=== PATIENT | male | born 1955 | race Caucasian/White ===

== ENCOUNTER 2016-12-05 09:20 | Day surgery (SDC) | payer OTHER, MEDICARE ==
--- NOTE | ~2016-12-05 | EGD ---
EGD REPORT [facility] [address] [address] NAME: EDSON SEXTON : 55 STATUS : REG [facility]#: [id number] AGE: 61 ADM/REG DATE : 12/05/16 MR#: [id number] REPORT SERV DATE: 12/05/16 DICTATED BY: EBEN CARTAGENA DATE: 12/05/16 REPORT STATUS : Draft [facility]ANS[facility]IBED BY: [facility] DATE: 12/05/16 [facility] Patient Name: Edson Sexton Date of : 1955 Attending MD: EBEN CARTAGENA MD Procedure Date No Time: 12/05/2016 Procedure: Colonoscopy Indications: High risk colon cancer surveillance: Personal history of colonic polyps Referring MD: BRYSON FROST MD Medicines: Propofol per Anesthesia Complications: No immediate complications. Procedure: Pre-Anesthesia Assessment: - ASA Grade Assessment: III - A patient with severe systemic disease. After I obtained informed consent, the scope was passed under direct vision. Throughout the procedure, the patient's blood pressure, pulse, and oxygen saturations were monitored continuously. The PCF [id number] was introduced through the anus and advanced to the terminal ileum. The colonoscopy was performed without difficulty. The quality of the bowel preparation was inadequate. Findings: Eight sessile, non-bleeding polyps were found in the entire colon. The polyps were small in size. multiple polyp throughout colon not removed because did not hold the plavix see dictated nopte on inna same day Impression: - Preparation of the colon was inadequate. - Eight small, non-bleeding polyps in the entire colon. Recommendation: - Repeat colonoscopy at appointment to be scheduled for retreatment. - The findings and recommendations were discussed with the patient and their spouse. - After the procedure, if you experience any pain in abdomen or chest,shortness of breath,fever,chills,blood in stool,rectal bleeding,vomiting of any material,nausea,black stools or weakness or dizziness, GO TO THE EMERGENCY IMMEDIATELY!!!!!!!!! Procedure Code(s): --- Professional --- 11468, Colonoscopy, flexible, proximal to splenic flexure; diagnostic, with or without collection of EGD REPORT [facility] [address] [id number] NAME: EDSON SEXTON : 55 STATUS : REG [facility] PAT#: [id number] AGE: 61 ADM/REG DATE : 12/05/16 MR#: [id number] REPORT SERV DATE: 12/05/16 DICTATED BY: EBEN CARTAGENA. DATE: 12/05/16 REPORT STATUS : Draft TRANSCRIBED BY: [employer] DATE: 12/05/16 specimen(s) by brushing or washing, with or without colon decompression (separate procedure) Diagnosis Code(s): --- Professional --- D12.6, Benign neoplasm of colon, unspecified Z86.010, Personal history of colonic polyps CPT copyright 2013 [employer]. All rights reserved. The codes documented in this report are preliminary and upon chief of hospital medicine review may be revised to meet current compliance requirements. Eben Cartagena MD EBEN CARTAGENA MD 12/05/2016 11:44 AM This report has been signed electronically. Number of Addenda: 0 Note Initiated On: 12/05/2016 11:10 AM Scope Withdrawal Time 0 hours 12 minutes 47 seconds [address] [id number]
--- NOTE | ~2016-12-05 | OP ---
Record Of Operation [facility] [address] [address] NAME: MATT SEXTON : 55 STATUS : REG [facility]#: [id number] AGE: 61 ADM/REG DATE : 12/05/16 MR#: [id number] REPORT SERV DATE: 12/05/16 DICTATED BY: EBEN CARTAGENA DATE: 12/05/16 REPORT STATUS : Draft TRANSCRIBED BY: [employer] DATE: 12/05/16 DATE OF PROCEDURE: 12/05/2016 PROCEDURE: Colonoscopy. INDICATION: History of multiple polyps eleven years ago, failed to follow up. SEDATION: Diprivan. FINDING: Olympus videoscope was passed into the cecum. TI was entered. Preparation was suboptimal. The patient also did not stop his Plavix. There were multiple polyps in the 5- 7 mm range throughout the colon, the ascending, transverse, and rectosigmoid. There were no malignant-looking lesions. Rectal retroflexion was normal. IMPRESSION: Multiple colon polyps in the 5-7 mm range. PLAN: At some point, we will need re-colonoscopy, withholding the Plavix, so a polypectomy could be performed. Also, will need better prep. MG/DAELE Eben Cartagena M.D. / [id number] CC: Kieran Duff M.D.
[~2016-12-05 09:20] MED LIST: APRES25 PO; ASA5GR PO; ASAB PO; AURYXIA210 MG PO; BUM2 PO; CARDCD300 PO; CEFADROXIL1 GM PO; CEFT5 PO; COREG12 PO; COREG25 PO; CYMBALTA60 PO; DSS PO; FOLIC PO; GLUCPH PO; HUMALOG SC; HYDROCHLOROT25 MG PO; HYDROCHLOROT50 MG PO; IMDUR30 PO; IMDUR60 PO; KLOR-CON 1010 MEQ PO; KLOR-CON M2020 MEQ PO; KLOR-CON20 MEQ PO; L40 PO; LANTUS SC; LIPITOR10 PO; LIPITOR40 PO; LOP50 PO; MICARDIS40 PO; MICARDIS80 PO; NEUR100 PO; NORV10 PO; NORV5 PO; NOVOLOG SC; NTG150 SL; PERCOCET1 TA4 PO; PHOSLO PO; PLAVIX PO; PR25 PO; ROPIVACAINE; ROPIVACAINE IM; SPIRO25 PO; SPIRO50 PO; SURBEX/C1 TAB PO; TIAZA3 PO; VALIUM10 MG PO; VICTOZA18 MG/3 ML SC; VITAMIN B-121000 MC1 SL; VITAMIN B12 PO; ZITH250 PO; [UNRECOGNIZED DRUG - CODE] IM; [UNRECOGNIZED DRUG - OTHER]
[2016-12-05 09:57] LABS: BUN (BLOOD UREA NITROGEN) 45 MG/DL (6-23); CALCIUM, SERUM 8.3 MG/DL (8.5-10.4); CHLORIDE, SERUM 99 MMOL/L (96-112); CO2 (CARBON DIOXIDE) 28 MMOL/L (24-34); CREATININE 5.97 MG/DL (0.70-1.30); GFR AFRICAN AMERICAN 11 ML/MIN (>=60); GFR NON AFRICAN AMERICAN 9 ML/MIN (>=60); GLUCOSE, SERUM 91 MG/DL (60-99); SODIUM, SERUM 137 MMOL/L (135-148)
== END 2016-12-05 23:59 | disposition home health service (06) ==
LOC: DMU 09:20
PROVIDERS: Anesthesiology; Internal Medicine Gastroenterology
PROC: 0DJD8ZZ Inspection of Lower Intestinal Tract, Via Natural or Artificial Opening Endoscopic (ICD-10-PCS; principal; 2016-12-05 12:00)
DX: Z09 Encounter for follow-up examination after completed treatment for conditions other than malignant neoplasm (principal); I13.2 Hypertensive heart and chronic kidney disease with heart failure and with stage 5 chronic kidney disease, or end stage renal disease; N18.6 End stage renal disease; E78.00 Pure hypercholesterolemia, unspecified; D63.1 Anemia in chronic kidney disease; E11.22 Type 2 diabetes mellitus with diabetic chronic kidney disease; I50.9 Heart failure, unspecified; E66.9 Obesity, unspecified; M19.90 Unspecified osteoarthritis, unspecified site; Z86.010 Personal history of colon polyps; Z88.8 Allergy status to other drugs, medicaments and biological substances; Z87.891 Personal history of nicotine dependence; Z87.442 Personal history of urinary calculi; Z98.890 Other specified postprocedural states
CPT/HCPCS: 80048